=== PATIENT | female | born 1980 | race Caucasian/White ===

== ENCOUNTER 2024-02-01 21:28 | Emergency (ER) | payer BC, SELFPAY ==
[2024-02-01 21:40] VITALS: BP 139/82
[2024-02-01 21:58] LABS: % Basophils 0.4 % (0-2); % Eosinophils 0.2 % (0-6); % Immature Granulocytes 0.1 % (0-0.5); % Lymphocytes 13.8 % (20.5-51.1); % Monocytes 2.7 % (1.7-9.3); % Neutrophils 82.8 % (42.2-75.2); Absolute Lymphocytes 1.3 10^3/uL (1.2-3.4); Absolute Monocytes 0.3 10^3/uL (0.1-0.6); Absolute Neutrophils 8.1 10^3/uL (1.4-6.5); Hematocrit 34.8 % (37.0-47.0); Mean Corp Hgb Conc. 34.5 g/dL (33.0-37.0); Mean Corpuscular Hgb 28.9 pg (27.0-31.0); Mean Corpuscular Volume 83.9 fL (81.0-99.0); Mean Platelet Volume 10.3 fL (7.4-10.4); Nucleated Red Blood Cells % 0 %; Platelet Count 196 10^3/uL (130-400); Red Blood Cell Count 4.15 10^6/uL (4.20-5.40); Red Cell Dist. Width 13.6 % (11.5-14.5); White Blood Cell Count 9.7 10^3/uL (4.8-10.8)
[2024-02-01 22:13] LABS: ALT (SGPT) 21 U/L (0-35); AST (SGOT) 25 U/L (14-36); Albumin 4.2 g/dl (3.5-5.0); Alkaline Phosphatase 69 U/L (38-126); Blood Urea Nitrogen 20 mg/dl (7-17); Calcium 9.6 mg/dl (8.4-10.2); Carbon Dioxide 24 mmol/L (22-30); Chloride 99 mmol/L (98-107); Glucose 139 mg/dl (70-99); Potassium 4.3 mmol/L (3.5-5.1); Sodium 135 mmol/L (135-145); Total Bilirubin 0.3 mg/dl (0.2-1.3); Total Protein 7.2 g/dl (6.3-8.2); eGFR > 60.00
--- NOTE | 2024-02-02 00:31 | ED.GENMED ---
History of Present Illness
General
Chief Complaint: Dizziness
Source: patient
Exam Limitations: none
Time Seen by Provider: 02/02/24 00:13
Travel History
Have you had any contact with someone who has COVID-19?: No
Do you have any symptoms of coronavirus? Fever > 100 degrees, chills, cough, shortness of breath, sore throat, loss of taste or smell, muscle aches, or headache?: No
History of Present Illness
History of Present Illness:
This is a 43 year old female that comes in with c/o cough and not feeling well. States that she started to not feel well on Monday. Then she went to work and she felt worse. States that she started with a cough and sore throat. Then
tonight she just wanted to sleep so she took 2 Benadryl. States that she awoke cold and then shivering. State that she couldn't get warm and she has blankets and heating pad. State that her told her her lips had no color. States that she
felt dizzy and shaky. states that she started to feel better on the way here but still has a sore throat. States that she did check a COVID at home and this was negative. States that she feels foggy. Denies any fever, chest pain, SOB, abd pain,
nausea, vomiting, diarrhea, headache, urinary burning.
Past History
Past History
ED Past Medical History: Asthma, Hypercholesterolemia and Psychiatric (Anxiety, Depression)
ED Past Surgical History: (X 2)
Social History
Tobacco: Non-smoker
Alcohol: Occasional
Personal:
Living: with family
Review of Systems
Review of Systems
All Other Systems: ROS reviewed and negative except as documented in HPI and ROS
Constitutional: Reports chills; Denies fever
EENT: Reports sore throat
Respiratory: Reports no symptoms; Denies cough or trouble breathing
ABD/GI: Reports no symptoms; Denies abdominal pain, nausea, vomiting or diarrhea
: Reports no symptoms; Denies dysuria, frequency or urgency
Musculoskeletal: Reports other (Body aches)
Skin: Reports no symptoms
Neurological: Reports dizzy (when she got up, felt foggy); Denies headache
Psychiatric: Reports no symptoms
Phy Exam
General Physical Exam
General Presentation: well appearing and no apparent distress
General age: appears stated age
General Skin: warm and dry
General Habitus: normal
General Mental: alert
General Hydration: appears well hydrated
ENT Exam
ENT Exam: TM's normal, pharynx normal and neck supple
Eye Exam
Eye Exam: EOMI
Cardiovascular Exam
Cardiovascular Exam: regular rate/rhythm, no edema, no murmur and normal peripheral pulses
Pulmonary Exam
Pulmonary Exam: lungs clear, no respiratory distress, no rales, chest non tender, no crackles, no rhonchi, no wheezing and no cough
Gastrointestinal Exam
Gastrointestinal Exam: normal bowel sounds, non tender, soft, no organomegaly, no pulsatile mass and non distended
Musculoskeletal Exam
Musculoskeletal Exam: full ROM and no edema
Skin Exam
Skin Exam: normal color, warm/dry, no rash and no petechia
Psychiatric Exam
Psychiatric Exam: normal mood/affect
Course
Orders/Labs/Results
Orders:
Orders
02/01/24 21:39
EKG [Electrocardiogram (*1)] Urgent
Reason for Study: Vertigo / Dizzy
EKG- Treatment ONCE
02/01/24 21:49
CBC/With Diff [Complete Blood Count/With Diff] Urgent
CMP [Comprehensive Metabolic Panel] Urgent
02/02/24 00:31
CR Chest - 2 Views Urgent
Comment:
Reason For Exam: Cough, low grade fever
02/02/24 00:33
COVID-19 Antigen Urgent
Source: Nasal Swab
Influenza A+B Rapid Molecular Urgent
ALESSANDRA Source: Nasal Swab
Specimen Description:
02/02/24 00:45
Urinalysis Reflex To Culture Urgent
Date Specimen was Collected: 02/02/24
Time Specimen was Collected: 00:43
Rapid Strep Group A Urgent
ALESSANDRA Source: Throat/Pharynx
Specimen Description:
Date Specimen was Collected: 02/02/24
Time Specimen was Collected: 00:43
Abnormal Lab Results
02/01/24
21:49
RBC 4.15 L 10^6/uL
(4.20-5.40)
Hct 34.8 L %
(37.0-47.0)
Absolute Neuts (auto) 8.1 H 10^3/uL
(1.4-6.5)
Neutrophils % 82.8 H %
(42.2-75.2)
Lymphocytes % 13.8 L %
(20.5-51.1)
BUN 20 H mg/dl
(7-17)
Glucose 139 H mg/dl
(70-99)
02/01/24 21:49
02/01/24 21:49
Slight Dehydration. Glucose nonfasting. COVID and Influenza negative. rapid strep negative. Urine is negative for infection,.
Vital Signs
Initial and Last Documented VS:
Initial Vital Signs
Temp Pulse Resp BP Pulse Ox
99.7 F 114 18 139/82 94
02/01/24 21:40 02/01/24 21:40 02/01/24 21:40 02/01/24 21:40 02/01/24 21:40
Last Documented Vital Signs
Temp Pulse Resp BP Pulse Ox
99.7 F 114 18 139/82 94
02/01/24 21:40 02/01/24 21:40 02/01/24 21:40 02/01/24 21:40 02/01/24 21:40
MDM/Problems Addressed
Differential Diagnosis Includes:
Viral syndrome. COVID, Influenza, PNA
MDM/Problems Addressed:
This is a 43 year old female that comes in with c/o not feeling well. States that this started 2 days ago. Then tonight she awoke with chills, sore throat, felt foggy, cough.
Will get COVID, Influenza. Chest x-ray. Rapid strep and urine
Back to see patient. Reviewed labs and all findings. Explained that this may still be a viral illness. Patient to increase her water intake to 8-8oz glasses daily. Tylenol or Ibuprofen for any fever and body aches. Follow up with the family doctor.
Return with any concerns.
Chronic conditions affecting care:
NA
Acute Exacerbation and/or Progression of Chronic Illness:
NA
*Radiology
Radiology exam reviewed: preliminary read by ED provider (Chest- Negative for active disease)
*Pulse Oximetry
Patient hypoxic: no
*EKG
Interpreted by ED Provider?: Yes
Heart Rate: 107
Rate: tachycardiac
Rhythm: sinus
[place]: normal axis
Interval: normal interval
QRS Pattern: normal QRS
Ischemia: no ischemia
*Chronic Disease Manager Interpretation
Rate: Chronic Disease Manager- N/A
*Critical Care Note
Total Time (30-74mins, 75-104mins- exclusive of procedures): Not Applicable
ED Attending Note
-
Portions of this chart may have been created with voice recognition software.� Occasional wrong word or��sound alike� substitutions may have occurred due to the inherent limitations of voice recognition software.
Discharge Plan
Departure
Patient Disposition: Home (Routine Discharge)
Date of Disposition: 02/02/24
Time of Disposition: 01:48
Patient with high blood pressure during this ER visit?: Yes
Condition: Good
Covid-19: Not Applicable
Discharge Problem:
Viral syndrome
Instructions: Viral Syndrome (DC), BLOOD PRESSURE
Referrals:
Kala Jorgensen CRNP [Family Provider] - Follow up in 2-3 days
Activity Restrictions/Additional Instructions:
As discussed, your blood work shows some dehydration. Please increase your water intake to 8-8oz glasses daily. You are negative for COVID, Influenza and your rapid strep is negative. Chest x-ray is normal and your Urine is negative for infection.
Please use Tylenol or Ibuprofen for any fever or body aches. Follow up with the family doctor for recheck. IF YOU HAVE ANY OTHER CONCERNS PLEASE RETURN TO THE EMERGENCY ROOM.
Interventions
Interventions:
*Risk Screen - Suicide Last Done: 02/01/24 21:40
*General Assessment Last Done: 02/01/24 21:40
*Neglect/Abuse Screening Last Done: 02/01/24 21:40
*ED COVID-19 Vaccine History Last Done: 02/01/24 21:40
ED- Neurological Assessment Last Done: 02/02/24 00:57
ED Swallowing Screen Last Done: 02/02/24 00:57
Discharge Date and Time
Print Language: LEBANESE
[2024-02-02 01:19] LABS: Urine Albumin Negative (Neg - Trace); Urine Bilirubin Negative (Negative); Urine Character Clear (Clear); Urine Color Yellow; Urine Glucose Negative (Negative); Urine Ketone Negative (Negative); Urine Leukocyte Negative (Negative); Urine Nitrite Negative (Negative); Urine Occult Blood Negative (Negative); Urine Specific Gravity 1.005 (<1.030); Urine Urobilinogen Negative (Neg - 1+); Urine pH 6.5 (5.0-9.0)
[2024-02-02 01:37] LABS: COVID-19 Antigen Negative (Negative)
== END 2024-02-02 01:59 | disposition home or self-care (01) ==
LOC: EMR 21:28
PROVIDERS: Clinical Nurse Specialist Family Health; Emergency Medicine; EMERGENCY PHYSICIAN Student in an Organized Health Care Education/Training Program; FAMILY PHYSICIAN Nurse Practitioner Adult Health
DX: B34.9 Viral infection, unspecified (principal); R03.0 Elevated blood-pressure reading, without diagnosis of hypertension; Z11.52 Encounter for screening for COVID-19
CPT/HCPCS: 99285; 71046; 80053; 81003; 85025; 87070; 87502; 87811; 87880; 93005

== ENCOUNTER 2025-08-14 06:15 | Day surgery (SDC) | payer BC, SELFPAY | END 2025-08-14 16:25 | disposition home or self-care (01) | LOC: GI 06:15 | PROVIDERS: ATTENDING PHYSICIAN Internal Medicine Gastroenterology | DX: Z12.11 Encounter for screening for malignant neoplasm of colon (principal); K64.8 Other hemorrhoids; K62.1 Rectal polyp | CPT/HCPCS: 45380; 88305 ==